=== PATIENT | female | born 1985 | race Caucasian/White ===

== ENCOUNTER 2017-06-02 01:41 | Emergency (ER) | payer MEDICARE, MEDICAID ==
[~2017-06-02] VITALS: Ht 167.6 cm; Wt 77.2 kg
[~2017-06-02 01:41] MED LIST: ALBU8.5H8 IH; CYCL-1 PO; DIAZ-351 PO; DIAZ5TAB PO; DOXY-257 PO; HYDR-569 PO; IBUP-1573 PO; IBUP-814 PO; METH4TAB3 PO; METH4TAB81 PO; NAPR-1154 PO; SYN0.112T PO
[2017-06-02] MEDS ORDERED: ipratropium/albuterol 3ml nebule NEB ONE (01:55)
[2017-06-02] MEDS ORDERED: dexamethasone 4mg tablet PO ONE (01:55)
[2017-06-02] MEDS ORDERED: PRED20TA PO (02:07)
[2017-06-02] MEDS ORDERED: ALBU8HFA PO (02:07)
[2017-06-02 02:47] VITALS: BP 130/67
== END 2017-06-02 02:49 | disposition home or self-care (01) ==
LOC: ER 01:42
DX: J45.901 Unspecified asthma with (acute) exacerbation (principal); G89.29 Other chronic pain; F41.9 Anxiety disorder, unspecified; E05.00 Thyrotoxicosis with diffuse goiter without thyrotoxic crisis or storm; F12.10 Cannabis abuse, uncomplicated
CPT/HCPCS: 94640; 94760; 99283; J8540

== ENCOUNTER 2018-01-04 07:58 | Emergency (ER) | payer MEDICARE, MEDICAID ==
[~2018-01-04] VITALS: Ht 167.6 cm; Wt 77.3 kg
[2018-01-04] MEDS ORDERED: methylPREDNISolone sod succ 125mg/2ml vial IV ONE (08:10)
[2018-01-04] MEDS ORDERED: albuterol 2.5 MG/3 ML nebule CONTNEB PRN (08:10)
[2018-01-04] MEDS ORDERED: normal saline 1000ML IV soln IVB ONE (08:10)
[2018-01-04 08:37] LABS: BASOPHILS # (AUTO) 0.2 X10'3 (0-0.2); BASOPHILS % (AUTO) 2.5 % (0-1); EOSINOPHILS # (AUTO) 0.4 X10'3 (0-0.9); EOSINOPHILS % (AUTO) 4.8 % (0-6); HEMATOCRIT 40.1 % (35.0-45.0); HEMOGLOBIN 13.7 g/dl (12.0-16.0); LYMPHOCYTES # (AUTO) 2.6 X10'3 (1.1-4.8); LYMPHOCYTES % (AUTO) 35.1 % (21-51); MEAN CORPUSCULAR HEMOGLOBIN 29.3 PG (27.0-31.0); MEAN CORPUSCULAR HGB CONC 34.1 % (33.0-36.5); MEAN CORPUSCULAR VOLUME 86.1 FL (78-98); MEAN PLATELET VOLUME 7.3 FL (7.4-10.4); MONOCYTES # (AUTO) 0.6 X10'3 (0-0.9); MONOCYTES % (AUTO) 7.5 % (2-12); NEUTROPHILS # (AUTO) 3.8 X10'3 (1.8-7.7); NEUTROPHILS % (AUTO) 50.1 % (42-75); PLATELET COUNT 356 X10'3 (140-440); RED BLOOD COUNT 4.66 X10'6 (4.20-5.60); RED CELL DISTRIBUTION WIDTH 13.9 % (11.5-14.5); WHITE BLOOD COUNT 7.5 X10'3 (4.5-11.0)
[2018-01-04 08:53] LABS: ALANINE AMINOTRANSFERASE 14 U/L (12-78); ALBUMIN 3.6 G/DL (3.4-5.0); ALBUMIN/GLOBULIN RATIO 0.9 (1.1-1.5); ALKALINE PHOSPHATASE 50 IU/L (46-116); ANION GAP 8 (8-16); ASPARTATE AMINO TRANSFERASE 17 U/L (10-37); BILIRUBIN,TOTAL 0.9 MG/DL (0.1-1.0); BLOOD UREA NITROGEN 15 MG/DL (7-18); BUN/CREATININE RATIO 16.3 (6.6-38.0); CALCIUM 8.8 MG/DL (8.5-10.1); CHLORIDE 106 MMOL/L (99-107); CREATININE 0.92 MG/DL (0.40-0.90); GLUCOSE 105 MG/DL (70-104); POTASSIUM 3.6 MMOL/L (3.5-5.1); SODIUM 140 MMOL/L (135-145); TOTAL CARBON DIOXIDE 25.9 MMOL/L (24-32); TOTAL PROTEIN 7.8 G/DL (6.4-8.2); eGFR 72 ML/MIN
[2018-01-04 09:30] VITALS: BP 137/70
[2018-01-04] MEDS ORDERED: ALBU18HF2 INH (09:45)
[2018-01-04] MEDS ORDERED: PRED20TA PO (09:45)
== END 2018-01-04 09:50 | disposition home or self-care (01) ==
LOC: ER 07:58
DX: J45.909 Unspecified asthma, uncomplicated (principal); I49.9 Cardiac arrhythmia, unspecified; G89.29 Other chronic pain; F12.90 Cannabis use, unspecified, uncomplicated; Z98.890 Other specified postprocedural states; Z79.899 Other long term (current) drug therapy
CPT/HCPCS: 36415; 71045; 80053; 85025; 94644; 94760; 96361; 96374; 99285; J2930; J7030; 94640

== ENCOUNTER 2018-04-12 09:25 | Emergency (ER) | payer MEDICARE, MEDICAID ==
[~2018-04-12] VITALS: Ht 167.6 cm; Wt 81.8 kg
[~2018-04-12 09:25] MED LIST changes: +ALBU18HF2 INH; +HYDR-4383 PO; -HYDR-569 PO
[2018-04-12 11:55] VITALS: BP 130/84
== END 2018-04-12 11:56 | disposition home or self-care (01) ==
LOC: ER 09:27
DX: N93.9 Abnormal uterine and vaginal bleeding, unspecified (principal); J45.909 Unspecified asthma, uncomplicated; G89.29 Other chronic pain; F12.90 Cannabis use, unspecified, uncomplicated; Z98.890 Other specified postprocedural states; Z79.899 Other long term (current) drug therapy
CPT/HCPCS: 36415; 84702; 99283

== ENCOUNTER 2018-08-08 10:44 | Emergency (ER) | payer MEDICARE, MEDICAID ==
[2018-08-08 11:07] VITALS: BP 115/75
[2018-08-08] MEDS ORDERED: PERM60CR19 TP (11:35)
== END 2018-08-08 11:55 | disposition home or self-care (01) ==
LOC: ER 10:44
DX: B86 Scabies (principal); E05.00 Thyrotoxicosis with diffuse goiter without thyrotoxic crisis or storm; J45.909 Unspecified asthma, uncomplicated; G89.29 Other chronic pain; M54.9 Dorsalgia, unspecified; F12.90 Cannabis use, unspecified, uncomplicated
CPT/HCPCS: 99282; 99283

== ENCOUNTER 2018-09-01 13:56 | Emergency (ER) | payer MEDICARE, MEDICAID ==
[~2018-09-01] VITALS: Ht 167.6 cm; Wt 81.8 kg
[~2018-09-01 13:56] MED LIST changes: +PERM60CR19 TP
[2018-09-01 14:53] LABS: BASOPHILS # (AUTO) 0.1 X10'3 (0-0.2); BASOPHILS % (AUTO) 0.9 % (0-1); EOSINOPHILS # (AUTO) 0.3 X10'3 (0-0.9); HEMATOCRIT 39.2 % (35.0-45.0); HEMOGLOBIN 13.3 g/dl (12.0-16.0); LYMPHOCYTES # (AUTO) 2.3 X10'3 (1.1-4.8); LYMPHOCYTES % (AUTO) 20.6 % (21-51); MEAN CORPUSCULAR HEMOGLOBIN 29.7 PG (27.0-31.0); MEAN CORPUSCULAR VOLUME 87.4 FL (78-98); MEAN PLATELET VOLUME 7.1 FL (7.4-10.4); MONOCYTES # (AUTO) 0.7 X10'3 (0-0.9); MONOCYTES % (AUTO) 6.5 % (2-12); NEUTROPHILS # (AUTO) 7.6 X10'3 (1.8-7.7); PLATELET COUNT 309 X10'3 (140-440); RED BLOOD COUNT 4.49 X10'6 (4.20-5.60); RED CELL DISTRIBUTION WIDTH 13.6 % (11.5-14.5)
[2018-09-01 14:57] LABS: URINE HCG NEGATIVE (NEG)
[2018-09-01 15:02] LABS: CLARITY,URINE CLEAR (Clear); COLOR,URINE YELLOW (Yellow); GLUCOSE, URINE NEGATIVE (Neg); KETONES,URINE NEGATIVE (Neg); LEUKOCYTE ESTERASE ,URINE NEGATIVE (Neg); NITRITES, URINE NEGATIVE (Neg); OCCULT BLOOD,URINE NEGATIVE (Neg); PH,URINE 5.5 (4.8-8.0); PROTEIN,URINE NEGATIVE (Neg); UROBILINOGEN,URINE 0.2 E.U/dL (0.2-1.0)
[2018-09-01 15:03] LABS: UA COLLECTION TYPE CLN CATCH MIDSTREAM
[2018-09-01 15:05] LABS: PROTHROMBIN TIME 10.6 SECONDS (9.0-12.0)
[2018-09-01 15:07] LABS: ALANINE AMINOTRANSFERASE 14 U/L (12-78); ALBUMIN 3.7 G/DL (3.4-5.0); ALBUMIN/GLOBULIN RATIO 0.9 (1.1-1.5); ALKALINE PHOSPHATASE 52 IU/L (46-116); ANION GAP 11 (8-16); ASPARTATE AMINO TRANSFERASE 16 U/L (10-37); BILIRUBIN,TOTAL 0.8 MG/DL (0.1-1.0); BLOOD UREA NITROGEN 9 MG/DL (7-18); BUN/CREATININE RATIO 11.1 (6.6-38.0); CALCIUM 9.2 MG/DL (8.5-10.1); CHLORIDE 106 MMOL/L (99-107); CREATININE 0.81 MG/DL (0.40-0.90); GLUCOSE 97 MG/DL (70-104); POTASSIUM 3.6 MMOL/L (3.5-5.1); SODIUM 142 MMOL/L (135-145); TOTAL CARBON DIOXIDE 24.8 MMOL/L (24-32); TOTAL PROTEIN 7.6 G/DL (6.4-8.2); eGFR 82 ML/MIN
--- NOTE | 2018-09-01 16:10 | NUR ---
pt is 33 yo female c/o RLQ abd radiating to LLQ abd, woke pt up from sleep at 0500 today, no n/v, no fever/chills, "feels like my stomach is going to explode", 12/25, had miscarriage approx 4 months ago, [id number] stillborn 1, pt is waiting to be evaluated
--- NOTE | 2018-09-01 16:52 | NUR ---
PT C/O INCREASED PAIN TO RLQ ABD, WAITING TO BE EVALUATED BY DR SANCHEZ
[2018-09-01 16:53] LABS: LIPASE 156 U/L (73-393)
[2018-09-01] MEDS ORDERED: ketorolac trometh. 30mg/ml inj. IV ONE (17:30)
[2018-09-01] MEDS ORDERED: HYDROmorphone inj. 0.5 MG/0.5 ML DISP.SYRIN IV PRN (17:30)
[2018-09-01] MEDS ORDERED: ondansetron/PF 4mg/2ml inj IV ONE (17:30)
[2018-09-01] MEDS ORDERED: normal saline 1000ML IV soln IVB ONE (17:30)
[2018-09-01] MEDS ORDERED: HYDR-3965 PO (20:02)
[2018-09-01] MEDS ORDERED: ONDA4TAB6 PO (20:02)
[2018-09-01] MEDS ORDERED: HYDROcodone/acetaminophen 10/325mg tab PO ONE (20:05)
[2018-09-01 20:18] VITALS: BP 146/71
== END 2018-09-01 20:22 | disposition home or self-care (01) ==
LOC: ER 13:56
DX: K80.20 Calculus of gallbladder without cholecystitis without obstruction (principal); R33.9 Retention of urine, unspecified; F41.9 Anxiety disorder, unspecified; F12.10 Cannabis abuse, uncomplicated; J45.909 Unspecified asthma, uncomplicated; Z88.5 Allergy status to narcotic agent; Z79.899 Other long term (current) drug therapy
CPT/HCPCS: 36415; 74176; 80053; 81003; 81025; 83690; 85025; 85610; 96374; 96375; 99284; J1170; J1885; J2405; J7030

== ENCOUNTER 2019-02-11 08:19 | Emergency (ER) | payer MEDICARE, MEDICAID ==
[~2019-02-11] VITALS: Ht 167.6 cm; Wt 82.0 kg
[~2019-02-11 08:19] MED LIST changes: -DOXY-257 PO; +DOXY-327 PO; +ONDA4TAB6 PO; -PERM60CR19 TP
[2019-02-11 09:32] LABS: BASOPHILS # (AUTO) 0.1 X10'3 (0-0.2); BASOPHILS % (AUTO) 0.7 % (0-1); EOSINOPHILS # (AUTO) 0.3 X10'3 (0-0.9); EOSINOPHILS % (AUTO) 4.4 % (0-6); HEMATOCRIT 38.5 % (35.0-45.0); LYMPHOCYTES # (AUTO) 2.1 X10'3 (1.1-4.8); MEAN CORPUSCULAR HEMOGLOBIN 29.9 PG (27.0-31.0); MEAN CORPUSCULAR HGB CONC 33.8 g/dL (33.0-36.5); MEAN CORPUSCULAR VOLUME 88.4 FL (78-98); MEAN PLATELET VOLUME 7.1 FL (7.4-10.4); MONOCYTES # (AUTO) 0.6 X10'3 (0-0.9); MONOCYTES % (AUTO) 7.6 % (2-12); NEUTROPHILS # (AUTO) 4.5 X10'3 (1.8-7.7); NEUTROPHILS % (AUTO) 59.3 % (42-75); PLATELET COUNT 350 X10'3 (140-440); RED BLOOD COUNT 4.36 X10'6 (4.20-5.60); RED CELL DISTRIBUTION WIDTH 14.1 % (11.5-14.5); WHITE BLOOD COUNT 7.6 X10'3 (4.5-11.0)
[2019-02-11 09:55] LABS: BETA HCG,QUANTITATIVE < 1.0 mIU/ml
[2019-02-11 11:29] LABS: CLARITY,URINE CLEAR (Clear); COLOR,URINE YELLOW (Yellow); GLUCOSE, URINE NEGATIVE (Neg); KETONES,URINE NEGATIVE (Neg); LEUKOCYTE ESTERASE ,URINE NEGATIVE (Neg); NITRITES, URINE NEGATIVE (Neg); OCCULT BLOOD,URINE SMALL (Neg); PH,URINE 5.5 (4.8-8.0); PROTEIN,URINE NEGATIVE (Neg); UROBILINOGEN,URINE 0.2 E.U/dL (0.2-1.0)
[2019-02-11 11:30] LABS: HCG SERUM QL NEGATIVE
[2019-02-11 11:30] LABS: UA COLLECTION TYPE VOIDED
[2019-02-11 11:32] LABS: SQUAMOUS EPITHELIAL CELL,UR FEW /LPF (FEW)
[2019-02-11 11:33] LABS: WBC,URINE 0-4 /HPF (0-4)
[2019-02-11 11:34] LABS: RBC,URINE 0-2 /HPF (0-2)
[2019-02-11 11:35] LABS: BACTERIA,URINE FEW /HPF (Neg)
[2019-02-11 12:25] VITALS: BP 135/69
== END 2019-02-11 12:28 | disposition home or self-care (01) ==
LOC: ER 08:21
DX: N93.9 Abnormal uterine and vaginal bleeding, unspecified (principal); J45.909 Unspecified asthma, uncomplicated; G89.29 Other chronic pain; F12.90 Cannabis use, unspecified, uncomplicated; Z98.890 Other specified postprocedural states; Z79.899 Other long term (current) drug therapy
CPT/HCPCS: 36415; 81001; 84439; 84443; 84702; 84703; 85025; 99283

== ENCOUNTER 2020-06-10 17:51 | Emergency (ER) | payer MEDICARE, MEDICAID ==
[~2020-06-10] VITALS: Ht 167.6 cm; Wt 118.2 kg
[2020-06-10] MEDS ORDERED: ipratropium/albuterol 3ml nebule NEB ONE (18:40)
[2020-06-10 19:04] VITALS: BP 126/79
[2020-06-10] MEDS ORDERED: predniSONE 20 mg tablet PO ONE (19:05)
[2020-06-10] MEDS ORDERED: ALBU18HF2 INH (19:11)
[2020-06-10] MEDS ORDERED: PRED20TA PO (19:12)
== END 2020-06-10 19:26 | disposition home or self-care (01) ==
LOC: ER 17:52
DX: J45.901 Unspecified asthma with (acute) exacerbation (principal); Z76.0 Encounter for issue of repeat prescription; E05.00 Thyrotoxicosis with diffuse goiter without thyrotoxic crisis or storm; G89.29 Other chronic pain; F19.90 Other psychoactive substance use, unspecified, uncomplicated; Z98.891 History of uterine scar from previous surgery; Z98.890 Other specified postprocedural states; Z79.899 Other long term (current) drug therapy
CPT/HCPCS: 94640; 99283; J7512; 94760

== ENCOUNTER 2020-09-03 17:21 | Emergency (ER) | payer MEDICARE, MEDICAID ==
[~2020-09-03] VITALS: Ht 167.6 cm; Wt 113.6 kg
[2020-09-03 17:25] VITALS: BP 151/83
[2020-09-03] MEDS ORDERED: ketorolac tromethamine 15mg/ml inj. IM ONE (18:45)
[2020-09-03] MEDS ORDERED: orphenadrine citrate 60mg/2ml inj. IM ONE (18:45)
[2020-09-03] MEDS ORDERED: IBUP-1984 PO (18:53)
[2020-09-03] MEDS ORDERED: ORPH100T2 PO (18:53)
[2020-09-03] MEDS ORDERED: ondansetron 4mg rapidly disintigrating tab PO ONE (19:50)
[2020-09-03] MEDS ORDERED: HYDROcodone/acetaminophen 5mg/325mg tablet PO ONE (19:50)
== END 2020-09-03 19:56 | disposition home or self-care (01) ==
LOC: ER 17:21
DX: M54.41 Lumbago with sciatica, right side (principal); J45.909 Unspecified asthma, uncomplicated; G89.29 Other chronic pain; F41.9 Anxiety disorder, unspecified; F12.90 Cannabis use, unspecified, uncomplicated; Z98.890 Other specified postprocedural states; Z79.2 Long term (current) use of antibiotics; Z79.899 Other long term (current) drug therapy
CPT/HCPCS: 96372; 99284; J1885; J2360

== ENCOUNTER 2021-06-13 16:46 | Emergency (ER) | payer MEDICARE, MEDICAID ==
[~2021-06-13] VITALS: Ht 167.6 cm; Wt 114.0 kg
[2021-06-13 16:46] VITALS: BP 141/95
[~2021-06-13 16:46] MED LIST changes: +ALBU8.5H17 IH; -ALBU8.5H8 IH; +ORPH100T2 PO
[2021-06-13] MEDS ORDERED: dexamethasone 4mg tablet PO ONE (18:35)
[2021-06-13] MEDS ORDERED: BUDE90AE IH (18:36)
[2021-06-13] MEDS ORDERED: DEXA6TAB6 PO (18:36)
--- NOTE | 2021-06-13 18:40 | NUR ---
Pt given and understands d/c instructions. Ambulatory with a steady gait.
== END 2021-06-13 18:40 | disposition home or self-care (01) ==
LOC: ER 16:46
DX: U07.1 COVID-19 (principal); R05.9 Cough, unspecified; F12.90 Cannabis use, unspecified, uncomplicated; J45.909 Unspecified asthma, uncomplicated; E05.00 Thyrotoxicosis with diffuse goiter without thyrotoxic crisis or storm; G89.29 Other chronic pain; Z98.891 History of uterine scar from previous surgery; Z79.2 Long term (current) use of antibiotics; Z79.899 Other long term (current) drug therapy
CPT/HCPCS: 71045; 99283

== ENCOUNTER 2022-02-03 14:03 | Emergency (ER) | payer MEDICARE, MEDICAID ==
[~2022-02-03] VITALS: Ht 167.6 cm; Wt 118.2 kg
[~2022-02-03 14:03] MED LIST changes: +BUDE90AE IH; +DEXA6TAB6 PO
[2022-02-03 14:13] VITALS: BP 141/84
[2022-02-03] MEDS ORDERED: sulfamethoxazole/trimethoprim DS (800/160mg) tablet PO ONE (14:50)
[2022-02-03] MEDS ORDERED: SULF1TAB49 PO (14:52)
== END 2022-02-03 15:08 | disposition home or self-care (01) ==
LOC: ER 14:03
DX: L03.317 Cellulitis of buttock (principal); R50.9 Fever, unspecified; R63.0 Anorexia; J45.909 Unspecified asthma, uncomplicated; G89.29 Other chronic pain; F41.9 Anxiety disorder, unspecified; F12.90 Cannabis use, unspecified, uncomplicated; Z98.890 Other specified postprocedural states; Z79.2 Long term (current) use of antibiotics; Z79.899 Other long term (current) drug therapy
CPT/HCPCS: 99284

== ENCOUNTER 2023-03-19 12:45 | Emergency (ER) | payer OTHER, MEDICARE, MEDICAID ==
[~2023-03-19] VITALS: Ht 167.6 cm; Wt 130.4 kg
[~2023-03-19 12:45] MED LIST changes: -DOXY-327 PO; +DOXY-457 PO; -ORPH100T2 PO; +ORPH100T4 PO
[2023-03-19] MEDS ORDERED: ondansetron 4mg rapidly disintigrating tab PO ONE (13:45)
[2023-03-19] MEDS ORDERED: ketorolac trometh. 30mg/ml inj. IM ONE (13:45)
[2023-03-19] MEDS ORDERED: IBUP-1986 PO (13:55)
[2023-03-19] MEDS ORDERED: ONDA4TAB12 PO (13:55)
[2023-03-19 14:24] VITALS: BP 132/80; PULSE 80; RESP 17; TEMP 98.7; O2SAT 97
--- NOTE | 2023-03-19 17:14 | NUR ---
I AGREE WITH THE ASSESSMENT PER Wendy MOREAU LVN.
== END 2023-03-19 14:28 | disposition home or self-care (01) ==
LOC: ER 12:45
DX: R51.9 Headache, unspecified (principal); V89.2XXA Person injured in unspecified motor-vehicle accident, traffic, initial encounter; Y93.89 Activity, other specified; Y92.89 Other specified places as the place of occurrence of the external cause; Y99.8 Other external cause status
CPT/HCPCS: 96372; 99283; J1885

== ENCOUNTER 2023-06-24 17:01 | Emergency (ER) | payer MEDICARE, MEDICAID ==
[~2023-06-24] VITALS: Ht 167.6 cm; Wt 134.9 kg
[~2023-06-24 17:01] MED LIST changes: +IBUP-1986 PO; +ONDA4TAB12 PO
[2023-06-24] MEDS ORDERED: NAPR-56 PO (19:07)
[2023-06-24 19:26] VITALS: BP 114/80; PULSE 78; RESP 16; TEMP 98.5; O2SAT 98
== END 2023-06-24 19:31 | disposition home or self-care (01) ==
LOC: ER 17:02
DX: S83.91XA Sprain of unspecified site of right knee, initial encounter (principal); J45.909 Unspecified asthma, uncomplicated; F12.90 Cannabis use, unspecified, uncomplicated; Z79.899 Other long term (current) drug therapy; Z79.1 Long term (current) use of non-steroidal anti-inflammatories (NSAID); X58.XXXA Exposure to other specified factors, initial encounter; Y93.89 Activity, other specified; Y92.89 Other specified places as the place of occurrence of the external cause; Y99.8 Other external cause status
CPT/HCPCS: 29505; 73564; 99283; A6449